=== PATIENT | male | born 1960 | race Hispanic/Latino ===

== ENCOUNTER 2025-03-16 09:00 | Observation (INO) | payer OTHER ==
[~2025-03-16] VITALS: Ht 172.7 cm; Wt 61.0 kg
[2025-03-19 09:36] VITALS: BP 144/85; PULSE 80; RESP 18; TEMP 98.1
[2025-03-19 09:44] LABS: IMMATURE GRANULOCYTE ABSOLUTE 0.02 K/uL (0-1); NUCLEATED RED BLOOD CELLS 0.0 % (0.0-0.19); PLATELET COUNT (AUTO) 383 K/uL (130-400); RED BLOOD CELL COUNT(AUTO) 4.48 MIL/uL (4.50-6.20); RED CELL DISTRIBUTION WIDTH 13.7 % (11.0-15.5); WHITE BLOOD COUNT (AUTO) 7.6 K/uL (4.8-10.8)
[2025-03-19 09:50] LABS: INR 1.07 (0.85-1.15)
[2025-03-19 09:56] LABS: ASPARTATE AMINOTRANSFERASE 24.0 U/L (10-37); CREATININE 1.1 mg/dL (0.5-1.3); GLOMERULAR FILTR. RATE CALC 75.0 mL/min (>90); GLUCOSE,RANDOM 95.0 mg/dL (70-105); SODIUM SERUM 137.0 mmol/L (136-145); TOTAL PROTEIN, SERUM 9.0 g/dL (6.0-8.3); UREA NITROGEN, BLOOD 14.0 mg/dL (7-18)
--- NOTE | 2025-03-19 09:59 | EKG ---
[facility] Test Date: 2025-03-19 Test Time: 09:23:55 Pat Name: ROSIO ASHBY Department: Patient ID: [facility] [id number] Room: Gender: M [place] Hand: [id number] : 1960 Requested By: FRANCESCO VILLAVICENCIO Order Number: [id number] Reading MD: Jr Doan Measurements Intervals [place] Rate: 73 P: 72 FL: 158 QRS: -36 QRSD: 92 T: 64 QT: 369 QTc: 407 Interpretive Statements Sinus rhythm Left axis deviation No previous ECG available for comparison Electronically Signed On 03-20-2025 00:03:31 CDT by Jr Doan Please click the below link to view image of tracing.
[2025-03-19] MEDS ORDERED: IBUP-2784 PO (10:01)
[2025-03-19 22:05] VITALS: BP 124/77; PULSE 73
[2025-03-20] VITALS (20 sets, daily range): BP systolic 119–152; BP diastolic 53–92; PULSE 62–80; RESP 15–16; TEMP 97.1–97.3
[2025-03-20] MEDS: GABAPENTIN 300 MG CAPSULE PO ONE (10:56)
[2025-03-20] MEDS: LACTATED RINGERS 1000ML 1,000 ML IV ONE (10:57)
[2025-03-20] MEDS ORDERED: LIDOCAINE 1%-EPI 1:100,000 20 ML VIAL ONE (18:27)
[2025-03-20] MEDS ORDERED: MAGNESIUM SULFATE 1 GM/2 ML VIAL ONE (18:49)
[2025-03-20] MEDS: MEROPENEM 1GM 1 GM VIAL IVPB ONE (18:55)
--- NOTE | 2025-03-20 20:31 | OP ---
Operative Note: DATE OF PROCEDURE: 03/20/25 SURGEON: FRANCESCO VILLAVICENCIO MD CLOTH CLASSER: None ANESTHESIA: General ANESTHESIOLOGIST/NEUROSURGERY RESEARCH DIRECTOR: NEUROSURGERY RESEARCH DIRECTOR PREOPERATIVE DIAGNOSIS: Rectal cancer POSTOPERATIVE DIAGNOSIS: Rectal cancer PROCEDURE: Diagnostic laparoscopy Flexible sigmoidoscopy ESTIMATED BLOOD LOSS: Minimal INDICATIONS: Mr. Guaman is a very pleasant 64-year-old male with a known rectal cancer status post total neoadjuvant therapy. He completed therapy and was offered surgical management. Complications, alternatives, risks and benefits of the procedure were discussed and include but not limited to infection, bleeding, injury to surrounding structures such as blood vessels nerves and other organs, need for stoma, anastomotic leak, sepsis, need for additional procedures as well as recurrence of disease. The patient voiced complete understanding wished to proceed with surgery. All of his in his daughter's questions were answered to their satisfaction. I did discuss with him preoperatively that based on the MRI findings this may be unresectable and require further workup for definitive management. DESCRIPTION OF PROCEDURE: After informed consent was obtained, the patient was taken to the operating room and laid in the supine position. Once general endotracheal anesthesia was obtained, the patient was carefully placed to lithotomy position. Next the abdomen was prepped and draped in the usual sterile fashion. A time-out was performed to confirm the correct patient procedure. Next a Veress needle was inserted and confirmed to be intra-abdominal with a saline drop test. Pneumoperitoneum was obtained. We then made an 8 mm incision followed by placement of an 8 mm trocar. The camera was inserted in the abdomen with suspected there was no evidence of metastatic disease. We then placed additional trocars and a horizontal fashion across the midabdomen. We then evaluated the tumor and took down the line of toe to mobilize the sigmoid colon. The colon was not very mobile due to adherence to the left pelvic sidewall as well as in the lower midline of the pelvis in the area of the trigone. The mesentery was also severely thickened and retracted at the JAMEL pedicle. We carefully assessed the tumor which was adherent down into the pelvis. There was no plane between the rectum left ureter in the area of the lower bladder. Given this it was decided to proceed with resection at this time as the patient would likely benefit from pelvic exenteration for an EN bloc resection and attempted care. We removed the trocars and closed the 12 mm port site with a Vicryl stitch. We then injected additional local anesthetic for postoperative pain control. We then closed the skin with Monocryl sutures and Dermabond was placed as showed dressing. We then performed a flexible sigmoidoscopy which confirmed a mid rectal cancer with only partial response to therapy. The patient tolerated the procedure well was taken to the recovery room in stable condition. I went and spoke to the daughter in detail about the above she voiced understanding and appreciation for the direct communication. All of her questions were answered to her satisfaction. Complications done Specimen done Counts were reported as correct x2 by nursing staff FRANCESCO VILLAVICENCIO MD Mar 20, 2025 20:31
[2025-03-20] MEDS ORDERED: MIDAZOLAM HCL 1 MG/ML 2ML VIAL ONE (20:43)
[2025-03-20] MEDS: LACTATED RINGERS 1000ML 1,000 ML IV SCH (21:42)
--- NOTE | 2025-03-20 22:14 | CONS ---
Consult Note Vitals/Labs Vital Signs Date Time Temp Pulse Resp B/P (MAP) Pulse Ox O2 Delivery O2 Flow Rate FiO2 03/20/25 21:50 71 137/88 100 Nasal Cannula 3.0 03/20/25 21:20 97.3 15 28 REASON FOR CONSULT: [medical management] HISTORY OF PRESENT ILLNESS: [Mr. Berger is a 64-year-old male that was seen and examined today on 03/20/2025. Patient was admitted to the hospital with a diagnosis of rectal ca ncer. Patient is status post sigmoidoscopy. Hospitalist service was consulted for medical management. Past medical history rectal cancer Surgical history, denies ] SOCIAL HISTORY: [Negative for smoking, alcohol use, drug use. Patient lives with the son, Florentino Murillo ] ASSESSMENT: [Rectal cancer, POA Status post sigmoidoscopy on 03/20/2025] PLAN: [Admit patient to surgical floor as inpatient status. Patient is being followed by Colorectal surgery Service. Heart healthy diet. Monitor patient's labs. Lactated Ringer's at 50 mL/HR. As-needed Tylenol. Lovenox 40 mg subcutaneously once daily. Gabapentin 100 mg by mouth 3 times daily. As needed analgesia with hydromorphone., oxycodone Intake and output every shift Incentive spirometry every 4 hours Out of yao-er-quyom 2 times daily Vital signs per routine GI prophylaxis, famotidine This document was generated in part using voice recognition software, occasional wrong word or sound alike substitutions may have occurred due to the inherent limitations of voice recognition software. Read the chart carefully and recognize using context, where the substitutions have occurred. Although every effort was made to edit the content, oyster unloader and typing errors may occur ATTESTATION BY PHYSICIAN I have seen and examined the patient. I reviewed the documentation, medical decision making, and treatment plan as noted by the mid-level provider above. I agree with the findings and plan of care.] Patient History: Alzheimer's disease FATHER, , Cause: Heart attack Cardiovascular disease FATHER, , Cause: Heart attack Allergies: Coded Allergies: No Known Drug Allergies (Unverified Allergy, Unknown, 03/19/25) Medications Current Medications Gabapentin 300 mg ONCE ONCE PO Last administered on 03/20/25at 10:56; Start 03/20/25 at 10:30; Stop 03/20/25 at 10:31; Status DC Gabapentin 300 mg STK-MED ONCE .ROUTE; Start 03/20/25 at 10:36; Stop 03/20/25 at 10:37; Status DC Lactated Ringer's 1,000 ml @ As Directed STK-MED ONCE IV Last administered on 03/20/25at 10:57; Start 03/20/25 at 10:37; Stop 03/20/25 at 10:37; Status DC Meropenem 1 gm STK-MED ONCE .ROUTE; Start 03/20/25 at 10:37; Stop 03/20/25 at 10:37; Status DC Bupivacaine HCl 2.5 mg STK-MED ONCE IJ; Start 03/20/25 at 18:27; Stop 03/20/25 at 18:27; Status DC Lidocaine/ Epinephrine 20 ml STK-MED ONCE .ROUTE; Start 03/20/25 at 18:27; Stop 03/20/25 at 18:28; Status DC Indocyanine Green 25 mg STK-MED ONCE IJ; Start 03/20/25 at 18:29; Stop 03/20/25 at 18:29; Status DC Magnesium Sulfate 1 gm STK-MED ONCE .ROUTE; Start 03/20/25 at 18:49; Stop 03/20/25 at 18:49; Status DC Ketamine HCl 50 mg STK-MED ONCE .ROUTE; Start 03/20/25 at 18:49; Stop 03/20/25 at 18:49; Status DC Lactated Ringer's 1,000 ml @ 50 mls/hr Q20H IV Last administered on 03/20/25at 21:42; Start 03/20/25 at 20:30; Stop 04/19/25 at 20:29 Ondansetron HCl 4 mg Q4H PRN IVP; Start 03/20/25 at 20:30; Stop 04/19/25 at 20:29 Acetaminophen 650 mg Q8H PO Last administered on 03/20/25at 21:45; Start 03/20/25 at 20:30; Stop 04/19/25 at 20:29 Insulin Human Regular AD PRN SQ; Start 03/20/25 at 20:30; Stop 04/19/25 at 20:29 Enoxaparin Sodium 40 mg DAILY SQ; Start 03/21/25 at 09:00; Stop 04/20/25 at 08:59 Hydromorphone HCl 0.5 mg Q6H PRN IVP; Start 03/20/25 at 20:30; Stop 03/25/25 at 20:29 Oxycodone HCl 5 mg Q6H PRN PO; Start 03/20/25 at 20:30; Stop 03/27/25 at 20:29 Gabapentin 100 mg TID PO Last administered on 03/20/25at 21:45; Start 03/20/25 at 21:00; Stop 04/19/25 at 20:59 Propofol 200 mg STK-MED ONCE IV; Start 03/20/25 at 20:43; Stop 03/20/25 at 20:43; Status DC Midazolam HCl 2 mg STK-MED ONCE .ROUTE; Start 03/20/25 at 20:43; Stop 03/20/25 at 20:43; Status DC Rocuronium [place] 50 mg STK-MED ONCE .ROUTE; Start 03/20/25 at 20:43; Stop 03/20/25 at 20:43; Status DC Fentanyl Citrate 100 mcg STK-MED ONCE .ROUTE; Start 03/20/25 at 20:43; Stop 03/20/25 at 20:43; Status DC Fentanyl Citrate 100 mcg STK-MED ONCE .ROUTE; Start 03/20/25 at 20:44; Stop 03/20/25 at 20:44; Status DC Fentanyl Citrate 100 mcg STK-MED ONCE .ROUTE; Start 03/20/25 at 20:44; Stop 03/20/25 at 20:44; Status DC Phenylephrine HCl 10 mg STK-MED ONCE IV; Start 03/20/25 at 20:48; Stop 03/20/25 at 20:48; Status DC Ondansetron HCl 4 mg STK-MED ONCE .ROUTE; Start 03/20/25 at 20:48; Stop 03/20/25 at 20:48; Status DC Meropenem 1 gm STK-MED ONCE IVPB Last administered on 03/20/25at 18:55; Start 03/20/25 at 18:55; Stop 03/20/25 at 20:52; Status DC Lidocaine/ Epinephrine 40 ml STK-MED ONCE IJ Last administered on 03/20/25at 19:15; Start 03/20/25 at 19:15; Stop 03/20/25 at 20:52; Status DC Bupivacaine HCl 2.5 mg STK-MED ONCE IJ Last administered on 03/20/25at 19:15; Start 03/20/25 at 19:15; Stop 03/20/25 at 20:52; Status DC [facility] Mar 20, 2025 22:14
[2025-03-20] MEDS: MEROPENEM 1GM 1 GM VIAL ONE (23:06)
[2025-03-20] MEDS: SUGAMMADEX SODIUM 200 MG/2 ML VIAL IV ONE (23:06)
[2025-03-20] MEDS: GABAPENTIN 300 MG CAPSULE ONE (23:06)
[2025-03-20] MEDS: INDOCYANINE GREEN 25 MG VIAL IJ ONE (23:06)
[2025-03-21] VITALS (8 sets, daily range): BP systolic 118–139; BP diastolic 68–80; PULSE 68–78; RESP 18; TEMP 98–98.3; O2SAT 99
[2025-03-21 03:58] LABS: IMMATURE GRANULOCYTE ABSOLUTE 0.03 K/uL (0-1); NUCLEATED RED BLOOD CELLS 0.0 % (0.0-0.19); PLATELET COUNT (AUTO) 318 K/uL (130-400); RED BLOOD CELL COUNT(AUTO) 3.95 MIL/uL (4.50-6.20); RED CELL DISTRIBUTION WIDTH 13.6 % (11.0-15.5); WHITE BLOOD COUNT (AUTO) 8.8 K/uL (4.8-10.8)
[2025-03-21 04:10] LABS: CREATININE 1.2 mg/dL (0.5-1.3); GLOMERULAR FILTR. RATE CALC 67.0 mL/min (>90); GLUCOSE,RANDOM 87.0 mg/dL (70-105); SODIUM SERUM 132.0 mmol/L (136-145); UREA NITROGEN, BLOOD 12.0 mg/dL (7-18)
[2025-03-21] MEDS: FAMOTIDINE 20MG TAB PO SCH (08:59)
[2025-03-21] MEDS: ENOXAPARIN SODIUM 40 MG/0.4 ML SYRINGE SQ SCH (09:02)
--- NOTE | 2025-03-21 09:43 | NUR ---
DCP: HOME Pt currently lives with his son Florentino Radford Jr [phone]. Pt does not report any insecurities with food, intermediate, and/or utilities. Pt uses a walker at home. Pt does not have provider or home health services. Pt states that he is able to complete ADLs independently. PCP is Dr. Hero Rodas and uses [facility] for any RX needs. At [place] pt will want to go home and family can assist with transportation. Addendum: 03/21/25 at 0946 by MARTA GE SS Amended: Links added.
[2025-03-21] MEDS: CIPROFLOXACIN HCL 0.2%/HYDROCORT 1% 10 ML OTIC SUSP OTIC SCH (12:05)
--- NOTE | 2025-03-21 12:06 | PN ---
[facility] PROGRESS NOTE Date of Service: Mar 21, 2025 Time of Service: 12:04 SUBJECTIVE: Patient is seen and examined at bedside, case discussed with the RN, no acute events overnight, patient alert oriented x3, hemodynamically stable, afebrile, saturating normal on room air, he denied chest pain, shortness shortness for breath, no nausea, no vomiting, no abdominal discomfort. He is tolerating diet. CBC with a hemoglobin 11.4, hematocrit 33.9. CMP with sodium 132, potassium 3.6, BUN of 12, creatinine 1.2. REVIEW OF SYSTEMS CONSTITUTIONAL: Denies fevers, chills, or night sweats. No unintentional weight loss reported. NEUROLOGICAL: Denies headache, amaurosis fugax, motor weakness, sensory defic it, vertigo/spinning sensation, gait abnormalities, or tremors. ENT: No hearing loss, otalgia, otorrhea, rhinitis, rhinorrhea, hoarseness, or sore throat. CARDIOVASCULAR: Denies any exertional angina, dyspnea on exertion, orthopnea, paroxysmal nocturnal dyspnea, palpitations, life-threatening arrhythmias, claudication. PULMONARY: Denies any shortness of breath, cough, phlegm/sputum, hemoptysis, pleuritic chest pain. SLEEP: Denies morning headaches, daytime somnolence or napping. Denies difficulty falling asleep, staying asleep, waking from sleep. Denies knowledge of snoring. GASTROINTESTINAL: Denies any type of dysphagia to either liquids or solids. Denies nausea, vomiting, pyrosis, early satiety, abdominal pain, diarrhea, constipation, or changes in stool consistency or caliber. Denies coffee-ground emesis, hematemesis, hematochezia, or melanotic stools. GENITOURINARY: Denies frequency, urgency, nocturia, hematuria or incontinence (Storage/Irritative symptoms.) Low urinary stream, straining to void, urinary intermittency or hesitancy, splitting of the voiding stream, terminal dribbling. ENDOCRINOLOGIC: Denies polyuria, polydipsia, polyphagia or heat/cold intolerances. HEMATOLOGIC: Denies thrombophilia/previous clots, or coagulopathy/bleeding disorders. ONCOLOGIC: Denies personal history of malignancy. DERMATOLOGIC: Denies rashes or pruritus. PSYCHIATRIC: Denies any suicidal or homicidal ideation. Denies hallucinations. PHYSICAL EXAM GENERAL APPEARANCE: The patient is awake, alert, and oriented, in no acute cardiopulmonary distress. NEUROLOGICAL: Cranial nerves II-XII grossly intact. Motor is 5/5 in bilateral upper and lower extremities proximal to distal. No sensory deficits. HEENT: Face is symmetric. Pupils are equal and reactive. Extraocular movements are intact. NECK: Supple. No JVD. No thyromegaly. No submental, submandibular, pre- /postauricular, occipital or supraclavicular lymphadenopathy. CHEST: Normal chest expansion. No Telemetry. LUNGS: Absence of any rales, rhonchi or any wheezing. CARDIOVASCULAR: Regular. S1 and S2 normal. No appreciable rubs, murmurs or gallops. ABDOMEN: Soft, nontender, and nondistended. There is no rebound, voluntary guarding, or rigidity. : Deferred. No Duarte. EXTREMITIES: Non-edematous and not cyanotic. No clubbing. Good capillary refill. SKIN: No skin breakdown. Vital Signs (last 8hr) Date Time Temp Pulse Resp B/P (MAP) Pulse Ox O2 Delivery O2 Flow Rate FiO2 03/21/25 11:35 98.2 78 18 137/77 99 Nasal Cannula 2.0 03/21/25 09:49 99 Room Air* 0 21 03/21/25 08:10 98.2 75 18 134/73 99 Nasal Cannula 2.0 LABS: Laboratory: Test 03/21/25 03:46 Range/Units White Blood Count 8.8 4.8-10.8 K/uL Red Blood Count 3.95 L 4.50-6.20 MIL/uL Hemoglobin 11.4 L 14.0-18.0 g/dL Hematocrit 33.9 L 42-54 % Mean Corpuscular Volume 85.8 79-99 fL Mean Corpuscular Hemoglobin 28.9 27.0-33.0 pg Mean Corpuscular Hemoglobin Concent 33.6 32.0-36.0 g/dL Red Cell Distribution Width 13.6 11.0-15.5 % Platelet Count 318 130-400 K/uL Mean Platelet Volume 8.2 7.5-10.5 fL Immature Granulocyte % (Auto) 0.3 0-1 % Neutrophils (%) (Auto) 85.7 H 40.0-77.0 % Lymphocytes (%) (Auto) 7.7 L 21.0-51.0 % Monocytes (%) (Auto) 6.2 3.0-13.0 % Eosinophils (%) (Auto) 0.0 0.0-8.0 % Basophils (%) (Auto) 0.1 0.0-5.0 % Neutrophils # (Auto) 7.6 1.8-7.7 K/uL Lymphocytes # (Auto) 0.7 L 1.0-4.8 K/uL Monocytes # (Auto) 0.6 0.1-1.0 K/uL Eosinophils # (Auto) 0.00 0.00-0.70 K/uL Basophils # (Auto) 0.01 0.00-0.20 K/uL Absolute Immature Granulocyte (auto 0.03 0-1 K/uL Nucleated Red Blood Cells 0.0 0.0-0.19 % White Cell Morphology Comment See comments Sodium Level 132 L 136-145 mmol/L Potassium Level 3.6 3.5-5.1 mmol/L Chloride Level 101 101-111 mmol/L Carbon Dioxide Level 27 21-32 mmol/L Blood Urea Nitrogen 12 7-18 mg/dL Creatinine 1.2 0.5-1.3 mg/dL Glomerular Filtration Rate Calc 67 >90 mL/min Random Glucose 87 70-105 mg/dL Total Calcium 8.7 8.5-10.1 mg/dL Current Medications Medications (Trade) Dose Ordered Sig/Lucila Route PRN Reason Start Time Stop Time Status Last Admin Dose Admin Acetaminophen (TYLenol 325MG TAB) 650 mg Q8H PO 03/20/25 20:30 04/19/25 20:29 03/21/25 05:26 650 MG Ciprofloxacin/ Hydrocortisone (Cipro Hc Otic Susp) 1 DROP Q4HWA OTIC 03/21/25 12:00 03/26/25 12:00 Enoxaparin Sodium (Lovenox) 40 mg DAILY SQ 03/21/25 09:00 04/20/25 08:59 03/21/25 09:02 40 MG Famotidine (Pepcid 20mg Tab) 20 mg DAILY PO 03/21/25 09:00 04/20/25 08:59 03/21/25 08:59 20 MG Gabapentin (NEURontin 100 mg CAP) 100 mg TID PO 03/20/25 21:00 04/19/25 20:59 03/21/25 08:59 100 MG Hydromorphone HCl (DiLAUDid 0.5MG INJ) 0.5 mg Q6H PRN IVP SEVERE PAIN (7-10) 03/20/25 20:30 03/25/25 20:29 Insulin Human Regular (humuLIN R 100 UNIT/ML 3ML) AD PRN SQ SLIDING SCALE COVERAGE 03/20/25 20:30 04/19/25 20:29 Lactated Ringer's 1,000 ml @ 50 mls/hr Q20H IV 03/20/25 20:30 04/19/25 20:29 03/20/25 21:42 50 MLS/HR Ondansetron HCl (zoFRAN 4MG INJ) 4 mg Q4H PRN IVP NAUSEA 03/20/25 20:30 04/19/25 20:29 Oxycodone HCl (ROXicoDONE) 5 mg Q6H PRN PO MODERATE PAIN (4-6) 03/20/25 20:30 03/27/25 20:29 03/21/25 09:01 5 MG DIAGNOSTICS / RADIOLOGY: [ ] ASSESSMENT: Rectal cancer, POA Status post sigmoidoscopy on 03/20/2025 PLAN: Admit patient to surgical floor as inpatient status. Patient is being followed by Colorectal surgery Service. Heart healthy diet. Monitor patient's labs. Lactated Ringer's at 50 mL/HR. As-needed Tylenol. Lovenox 40 mg subcutaneously once daily. Gabapentin 100 mg by mouth 3 times daily. As needed analgesia with hydromorphone., oxycodone Intake and output every shift Incentive spirometry every 4 hours Out of [id number] 2 times daily Vital signs per routine GI prophylaxis, famotidine Possible discharge home today if cleared by General surgery. TORI GARCIA MD Mar 21, 2025 12:05
--- NOTE | 2025-03-21 13:04 | DS ---
Discharge Summary HOSPITAL COURSE SUMMARY: [] FOOD PROCESSOR(S): [] PROCEDURES: [] PROBLEM(S): [] DISCHARGE INSTRUCTIONS: [] Home Meds Reported Medications Ibuprofen (Ibuprofen 200 mg Tablet) 200 Mg Tablet, 400 MG PO QODAY, TAB 03/19/25 GARRY DICKSON [employer] Mar 21, 2025 13:04
--- NOTE | 2025-03-21 17:33 | NUR ---
D/C INSTRUCTIONS GIVEN TO PATIENT AND DAUGHTER ACKNOWLEDGED. IV REMOVED
== END 2025-03-21 17:53 | disposition home or self-care (01) ==
LOC: INTOOBSV 03-20 10:12 → DAHIP 03-20 10:12 → 3AH 03-20 21:28
PROVIDERS: ADMIT Surgery; ATTEND Surgery
DX: C20 Malignant neoplasm of rectum (principal); Z79.899 Other long term (current) drug therapy; Z79.01 Long term (current) use of anticoagulants
CPT/HCPCS: 80053; 85025 ×2; 85610; 85730; 86850; 86900; 86901; 36415 ×2; 93005; 49320; 45330; 96372; 80048; A6260; G0378 ×21; A4223 ×2; A4600; A4663; J7030; J7120 ×2; A4344; A4215 ×2; J3010 ×3; J3490 ×4; J0665 ×2; J3475; J2250; J2704; J2405; J2371; J2185 ×2; C1769; A4649 ×2; A4930; A4222; A4221; A4216; J1650 ×2